=== PATIENT | female | born 1965 ===

== ENCOUNTER → 2017-01-14 | Outpatient (CLI) | payer SELFPAY ==
--- NOTE | 2017-01-14 14:45 | RAD ---
EXAM: 1. Left knee 3 views. 2. Left ankle 3 views. HISTORY: Left knee and ankle pain. COMPARISON: None. FINDINGS: There are changes of left anterior cruciate ligament reconstruction. Left medial compartmental joint space narrowing and osteophytosis are moderate to severe with near effacement of the joint space. There are smaller osteophytes along the patellofemoral compartment and lateral compartment with preservation of the joint spaces. There is a small joint effusion. A frontal image of the right knee reveals no abnormality. There are changes of internal fixation of a healed distal fibular fracture with lateral plate fixed by screws and 2 interfragmentary screws. Syndesmotic fixation is also noted. The joint spaces and alignment of the ankle mortise are maintained. There is a small plantar calcaneal spur. No fractures are identified acutely. IMPRESSION: 1. Moderate to severe medial compartmental predominant tricompartmental osteoarthritis of the left knee. 2. Status post left anterior cruciate ligament reconstruction. 3. Internal fixation of a chronic healed left distal fibular fracture with syndesmotic fixation.
== END | disposition home or self-care (01) ==
LOC: DXRADRC 14:05
PROVIDERS: ATTEND Orthopaedic Surgery Sports Medicine
DX: M25.572 Pain in left ankle and joints of left foot (principal); M17.12 Unilateral primary osteoarthritis, left knee; Z98.890 Other specified postprocedural states
CPT/HCPCS: 73562; 73610